=== PATIENT | male | born 1945 | race Caucasian/White ===

== ENCOUNTER 2016-12-04 22:04 | Observation (INO) | payer MEDICARE, OTHER ==
[2016-12-04] MEDS ORDERED: NITROGLYCERIN 2% OINTMENT 1 GM PACKET TP ONE (22:25)
--- NOTE | 2016-12-04 22:28 | ER Document Report ---
ED General - General Chief Complaint: Chest Pain Stated Complaint: CHEST PAIN Time Seen by Provider: 12/04/16 22:16 Notes: Patient is a 71-year-old male who presents with complaint of chest pain and some nausea. Says over the last 24 hours initially started having some pain more with exertion. Pain is progressed to become more frequent and now occurs little bit with rest. Pain is substernal radiates down the left arm. He says it feels when he had an KY in the past. His KY was 4 years ago. At that time he had stents placed. He had 1 or 2 stents. He says that he was placed" the main artery". He no longer on Plavix. He did have aspirin just prior to arrival. He has been taken nitro. So the nitro typically chest pain. He is followed by a physician executive in [place], Dr. Noah Liang. He did have a stress test in August which was normal. No heart cath since replaced 4 years ago. He does not smoke Past Medical History - Social History Smoking Status: Never Smoker Frequency of alcohol use: None Drug Abuse: None Family History: Reviewed & Not Pertinent - Past Medical History Cardiac Medical History: Denies: Hx Coronary Artery Disease, Hx Heart Attack, Hx Hypertension Pulmonary Medical History: Denies: Hx Asthma, Hx Bronchitis, Hx COPD, Hx Pneumonia Neurological Medical History: Denies: Hx Cerebrovascular Accident, Hx Seizures Musculoskeltal Medical History: Reports Hx Arthritis - back Past Surgical History: Denies: Hx Pacemaker Review of Systems - Review of Systems Notes: My Normal Review Basic REVIEW OF SYSTEMS: CONSTITUTIONAL : Denies fever, chills, or sweats. Denies recent illness. EENT: Denies eye, ear, throat, or mouth pain or symptoms. Denies nasal or sinus congestion. CARDIOVASCULAR: Had Chest pain RESPIRATORY: Denies cough, cold, or chest congestion. Denies shortness of breath, difficulty breathing, or wheezing. MUSCULOSKELETAL: Denies neck or back pain or joint pain or swelling. SKIN: Denies rash or skin lesions. NEUROLOGICAL: Denies altered mental status or loss of consciousness. Denies headache. Denies weakness or paralysis or loss of use of either side. Denies problems with gait or speech. Denies sensory or motor loss. ALL OTHER SYSTEMS REVIEWED AND NEGATIVE. Physical Exam - Notes Notes: General Appearance: Well nourished, alert, cooperative, no acute distress, no obvious discomfort. Wella ppearing Vitals: reviewed, See vital signs table. Eyes: PERRL, EOMI, Conjuctiva clear Mouth: No decreasd moisture Lungs: No wheezing, No rales, No rhonci, No accessory muscle use, good air exchange bilaterally. Heart: Normal rate, Regular rythm, No murmur, no rub Abdomen: Normal BS, soft, No rigidity, No abdominal tenderness, No guarding, no rebound, no abdominal masses, no organomegaly Extremities: strength 5/5 in all extremities, good pulses in all extremities, no swelling or tenderness in the extremities, no edema. Skin: warm, dry, appropriate color, no rash Neuro: speech clear, oriented x 3, normal affect, responds appropriately to questions. Course - Laboratory Result Diagrams: 12/04/16 22:40 12/04/16 22:40 Laboratory results interpreted by me: 12/04/16 22:40 BUN 25 H Glucose 168 H AST 15 L Creatine Kinase 38 L Total Protein 5.7 L - EKG Interpretation by Me Additional EKG results interpreted by me: 12/04/16 22:34 EKG is reviewed and interpreted by me. EKG shows normal sinus rhythm with a rate of [address] segment elevation or depression. Patient does have a right bundle branch block. NM interval, QTc intervals are within normal range. QRS duration is prolonged. No old EKG available for comparison. 12/05/16 00:14 EKG #2 is reviewed and interpreted by me. EKG shows normal sinus rhythm with rate of [address] segment elevation or depression. He does have the same right bundle branch block without any new changes. NM interval, QTc intervals are within normal range. QRS duration is prolonged. - Transfer of Care Notes: 12/05/16 03:22 Spoke with Kaila Ojeda, physician executive covering for Dr. Liang. I did explain to her his symptoms my concern that this is similar to his previous KY. His troponin and repeat troponin are in the indeterminate range. At this time she requests that we keep the patient here for further workup and rule out. She requests that when his relatives complete that the admitting physicians call there and speak with cardiology group to talk about whether or not she needs to be transferred that time or can have an outpatient cath performed. She says that if he develops recurrent chest pain or if he has any elevation of his heart enzymes then she requests that we call them back immediately for transfer. Discharge - Discharge Clinical Impression: Chest pain Qualifiers: Chest pain type: unspecified Qualified Code(s): R07.9 - Chest pain, unspecified Condition: Good Disposition: HOME, SELF-CARE Admitting Provider: Hospitalist Unit Admitted: Telemetry
[2016-12-04 22:52] LABS: ABSOLUTE EOSINOPHILS # (AUTO) 0.1 10^3/uL (0.0-0.6); ABSOLUTE LYMPHOCYTES (AUTO) 1.2 10^3/uL (0.5-4.7); ABSOLUTE MONOCYTES (AUTO) 0.4 10^3/uL (0.1-1.4); ABSOLUTE NEUT (AUTO) 4.7 10^3/uL (1.7-8.2); BASOPHILS % (AUTO) 0.4 % (0-2); EOSINOPHILS % (AUTO) 1.8 % (0-6); HEMATOCRIT 42.3 % (37.9-51.0); HEMOGLOBIN 13.9 g/dL (13.5-17.0); HGB HCT DIFFERENCE -0.6; LYMPHOCYTES % (AUTO) 18.6 % (13-45); MEAN CORPUSCULAR HGB CONC 32.9 g/dL (32.0-36.0); MEAN CORPUSCULAR VOLUME 85 fl (80-97); RED BLOOD COUNT 4.99 10^6/uL (4.35-5.55); RED CELL DISTRIBUTION WIDTH 13.5 % (11.5-14.0); SEGMENTED NEUTROPHILS % (AUTO) 73.2 % (42-78); WHITE BLOOD COUNT 6.4 10^3/uL (4.0-10.5)
[2016-12-04 23:03] LABS: ALANINE AMINOTRANSFERASE 28 U/L (21-72); ALBUMIN 3.6 g/dL (3.5-5.0); ALKALINE PHOSPHATASE 83 U/L (38-126); ANION GAP 9 (5-19); ASPARTATE AMINO TRANSFERASE 15 U/L (17-59); BILIRUBIN,DIRECT 0.2 mg/dL (0.0-0.4); BILIRUBIN,TOTAL 0.5 mg/dL (0.2-1.3); BLOOD UREA NITROGEN 25 mg/dL (7-20); CALCIUM 9.1 mg/dL (8.4-10.2); CARBON DIOXIDE 24 mmol/L (22-30); CHLORIDE 107 mmol/L (98-107); CREATINE KINASE 38 U/L (55-170); CREATININE RESULT 1.18 mg/dL (0.52-1.25); GLUCOSE 168 mg/dL (75-110); POTASSIUM 4.2 mmol/L (3.6-5.0); SODIUM 139.9 mmol/L (137-145); TOTAL PROTEIN 5.7 g/dL (6.3-8.2)
--- NOTE | 2016-12-04 23:05 | RADIOLOGY REPORT (SQ) ---
EXAM DESCRIPTION: CHEST SINGLE VIEW COMPLETED DATE/TIME: 12/04/2016 10:54 pm REASON FOR STUDY: chest pain COMPARISON: None. EXAM PARAMETERS: NUMBER OF VIEWS: One view. TECHNIQUE: Single frontal radiographic view of the chest acquired. RADIATION DOSE: NA LIMITATIONS: None. FINDINGS: LUNGS AND PLEURA: No opacities, masses or pneumothorax. No pleural effusion. MEDIASTINUM AND HILAR STRUCTURES: Moderate size retrocardiac hiatal hernia containing air-fluid level . HEART AND VASCULAR STRUCTURES: Heart normal in size. Normal vasculature. BONES: No acute findings. HARDWARE: None in the chest. OTHER: No other significant finding. IMPRESSION: Moderate size retrocardiac hiatal hernia containing air-fluid level. No acute infiltrat es. TECHNICAL DOCUMENTATION: JOB ID: [id number]
[2016-12-04 23:15] LABS: CREATINE KINASE MB 0.69 ng/mL (<4.55); TROPONIN I 0.03 ng/mL
[2016-12-05] MEDS ORDERED: NITROGLYCERIN 2% OINTMENT 1 GM PACKET TP SCH (04:15)
[2016-12-05 06:44] LABS: CHOLESTEROL 132.58 mg/dL (0-200); Direct HDL 51 mg/dL (>40); TRIGLYCERIDES 77 mg/dL (<150)
[2016-12-05 06:55] LABS: DIRECT LDL 60 mg/dL (<100)
[2016-12-05] MEDS ORDERED: ACETAMINOPHEN 325 MG TABLET PO PRN ×2 (07:38→10:07)
[2016-12-05] MEDS ORDERED: MAG HYDROX/AL HYDROX/SIMETH SUSP 30 ML UDCUP PO PRN ×2 (07:40→10:10)
[2016-12-05] MEDS ORDERED: PROMETHAZINE HCL 25 MG TABLET PO PRN ×2 (07:43→10:08)
--- NOTE | 2016-12-05 08:52 | PDOC H&P ---
History of Present Illness Admission Date/PCP: 12/05/16 05:[address] Noah Liang [facility] Patient complains of: Chest pain History of Present Illness: ESDRAS CORRAL is a 71 year old male with known coronary artery disease, having suffered an CT 4 years ago, with implantation of 1 or 2 stents at that time in his "main artery." Off Plavix for approximately 18 months. Negative stress test in August of this year. No heart cath since stent implantation. Patient has been discussed with emergency room physician who evaluated the patient. He describes a 3 or 4 day history of intermittent episodes of pressure-like substernal chest pain that radiates down his left arm. Has become particularly noticeable over the last 24 hours. Pain sometimes at rest, and sometimes with exertion. Pain quite similar to what he experienced with his previous CT. Associated nausea, but no vomiting. States it feels as though is hard to catch his breath when he has the pain. No associated sweating. Has basically been pain-free since coming to the hospital and having nitro paste applied, other than very brief episodes of much milder pain, typically lasting 5 minutes or so. Currently resting quietly, chest pain-free.. Laboratory results are listed in [facility] and are reviewed. X-ray summary results are listed below, with full report(s) reviewed. . EKGs reviewed. No prior EKG available for comparison. Social history/personal habits: . Has children. 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 No use of tobacco alcohol or illicit drugs. Allergies/adverse reactions are listed in [facility] and are reviewed. Home medications initially autopopulated into [facility] may not accurately reflect patient's true medications, dosages, and/or frequencies. 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 Unfortunately, patient not certain of all medications/dosages/frequencies. REVIEW OF SYSTEMS: Constitutional: No fever or chills. Eyes: Wears glasses. ENT: No swallowing problems or complaints. Denies hearing loss. Pulmonary: See history and present illness. Cardiovascular: See history and present illness. Gastrointestinal: See history and present illness. Skin: No current complaints, including rashes. Hematologic: Easy bruising. Neurologic: No current complaints, including numbness or tingling. Musculoskeletal: Mild arthritis pain involving his hands. Psychiatric: Denies anxiety or depression. Endocrine: No current complaints, including polyuria. Genitourinary: No current complaints, including dysuria. PHYSICAL EXAMINATION: Neither height nor weight are recorded on the chart. Blood pressure 131/78. Pulse 62 and regular. Respirations are 16 and unlabored. 95% saturation on room air. Temperature not recorded on chart; skin feels normothermic. Slightly overweight otherwise well-nourished well-developed male appearing a bit younger than his stated age. Pleasant awake alert and cooperative. Somewhat anxious, although no inga agitation. Skin is warm and dry. No grossly obvious evidence of rash in areas of skin examined. No subcutaneous nodules palpated. ENT: Hearing grossly normal to normal conversation. Tongue midline on protrusion pink and slightly tacky. Eyes: No scleral icterus. Pupils equal and reactive to light at 4 mm. [place] conjunctivae. Neck is supple and nontender to gentle active range of motion and palpation. Midline trachea. No palpable thyroid nodule mass enlargement or tenderness. Lymphatic: No palpable cervical or clavicular nodes. Neck and lymphatic exams limited by patient body habitus. Psychiatric: Reasonable insight into acute and chronic medical issues. Oriented to time location and why here. Lungs: Auscultation reveals clear and equal breath sounds bilaterally. No use of accessory respiratory muscles. Cardiovascular: Heart regular rate and rhythm, without gallop murmur or rub. No carotid or abdominal aortic bruits. No ankle or pedal edema. Faintly palpable dorsalis pedis pulses. Abdomen:soft slightly distended nontender with positive bowel sounds. Unable to adequately evaluate abdomen for masses or organomegaly due to distention. Compression of neither the upper abdomen nor sternum reproduces his previously noted chest discomfort. Extremities: Feet are cool and dry with quite acceptable capillary refill at toes. No calf tenderness to compression. No grossly obvious visual evidence of calf swelling. Gentle manipulation of lower extremities fails to reveal any obvious evidence of injury or instability to knees hips or ankles. Neurologic: Moves upper extremities grossly normally. Patellar reflexes absent. Absent Babinski. Light touch is intact at feet. Dorsiflexion and plantarflexion of feet 5 / 5 and symmetric. Past Medical History Cardiac Medical History: Reports: Coronary Artery Disease - Stented, Myocardial Infarction, Hyperlipidema, Hypertension Denies: Congestive Heart Failure, DVT, Pulmonary Embolism Pulmonary Medical History: Reports: Sleep Apnea Denies: Asthma, Bronchitis, Chronic Obstructive Pulmonary Disease (COPD), Pneumonia EENT Medical History: Reports: Eyes - Glasses Denies: Ears, Throat Neurological Medical History: Denies: Hemorrhagic CVA, Ischemic CVA, Seizures Endocrine Medical History: Reports: Hypothyroidism - Post surgical Denies: Diabetes Mellitus Type 1, Diabetes Mellitus Type 2, Hyperthyroidism Renal/ Medical History: Reports: None GI Medical History: Denies: Cirrhosis, Gastroesophageal Reflux Disease, Hepatitis, Peptic Ulcer Disease Musculoskeltal Medical History: Reports: Arthritis - back Skin Medical History: Denies: None Psychiatric Medical History: Denies: Alcohol Dependency, Depression, General Anxiety Disorder, Substance Abuse, Tobacco Dependency Hematology: Reports: Other - Easy bruising Denies: Anemia Infectious Medical History: Denies: Clostridium Difficile, Hepatitis B, Hepatitis C, Methicillin- Resistant Staph Aureus Past Surgical History Past Surgical History: Reports: Coronary Stent - 1 or 2, 2013 following myocardial infarction., Herniorrhaphy, Other - Total thyroidectomy for benign disease Denies: Pacemaker Social History Information Source: Patient, Emergency Med Personnel, [facility] Records Lives with: Spouse/Significant other Smoking Status: Never Smoker Frequency of Alcohol Use: None Drugs: None - Advance Directive Resuscitation Status: Full Code Surrogate healthcare decision maker:: Family History Family History: Reviewed & Not Pertinent Parental Family History Reviewed: Yes - Mother of cirrhosis, father of ruptured abdominal aortic aneurysm Children Family History Reviewed: Yes - Healthy Sibling(s) Family History Reviewed.: Yes - Brother as an infant at 3 months old. Medication/Allergy Home Medications: Aspirin [Aspirin 81 mg Chewable Tablet] 81 mg PO DAILY 12/05/16 Levothyroxine Sodium [Synthroid] 137 mcg PO QAM 12/05/16 Metoprolol Succinate [Toprol Xl 25 mg Tab.sr] 25 mg PO DAILY 12/05/16 Pravastatin Sodium [Pravachol] 40 mg PO QHS 12/05/16 Allergies/Adverse Reactions: prednisone Allergy (Verified 12/05/16 07:28) Physical Exam Vital Signs: Temp Pulse Resp BP Pulse Ox 16 129/83 H 99 12/05/16 07:01 12/05/16 07:01 12/05/16 07:01 Results Laboratory Results: 12/05/16 06:13 Triglycerides 77 Cholesterol 132.58 LDL Cholesterol Direct 60 VLDL Cholesterol 15.0 HDL Cholesterol 51 12/05/16 06:13 Troponin I 0.032 Impressions: Chest X-Ray 12/04/16 22:17 IMPRESSION: Moderate size retrocardiac hiatal hernia containing air-fluid level. No acute infiltrates. Assessment & Plan - Diagnosis (1) Chest pain Qualifiers: Chest pain type: unspecified Qualified Code(s): R07.9 - Chest pain, unspecified Is this a current diagnosis for this admission?: YesPlan: Patient will be placed in observation bed under chest pain protocol. Patient understands to notify staff should chest pain recur. Serial troponin . Repeat EKG. lipid panel. Emergency room physician discussed patient with Dr. Kristi Watson, on-call peoplesoft hrms developer covering for Dr. Liang. Please refer to his notes concerning same. Recommended patient be placed in observation bed in our facility with trending of enzymes. If patient remains chest pain-free and enzymes do not elevate, call the cardiology group to assist in arranging outpatient heart cath. Obviously if pain recurs and/or enzymes elevate, to call earlier for transfer to their facility. I have strongly encouraged patient to be careful getting out of bed without notifying staff, to avoid a fall with injury. Knee high SCDs for DVT prophylaxis, along with subcu Lovenox. Impression and plans were discussed with patient who concurs. Time spent in evaluation and management of patient: 72 minutes. (3) HLD (hyperlipidemia) Qualifiers: Hyperlipidemia type: unspecified Qualified Code(s): E78.5 - Hyperlipidemia, unspecified Is this a current diagnosis for this admission?: YesPlan: Lipid panel. Resume home medications as appropriate once these have been determined and reviewed. (4) Post-surgical hypothyroidism Is this a current diagnosis for this admission?: YesPlan: TSH pending. Resume home medications as appropriate once these have been determined and reviewed.
[2016-12-05] MEDS: DOCUSATE SODIUM 100 MG CAPSULE PO SCH ×2 (09:21→19:11)
[2016-12-05] MEDS: NITROGLYCERIN 2% OINTMENT 1 GM PACKET TP SCH ×2 (09:21→16:10)
[2016-12-05] MEDS: ASPIRIN 81 MG TABLET, ENT COATED PO SCH (09:23)
[2016-12-05] MEDS ORDERED: ENOXAPARIN SODIUM INJ 40 MG/0.4 ML DISP.SYRIN SUBCUT SCH (10:00)
--- NOTE | 2016-12-05 10:23 | EKG REPORT ---
SEVERITY:- ABNORMAL ECG - SINUS RHYTHM RIGHT BUNDLE BRANCH BLOCK : Confirmed by: Mackenzie Mcfarlane MD 05-Dec-2016 10:22:11
--- NOTE | 2016-12-05 10:23 | EKG REPORT ---
SEVERITY:- ABNORMAL ECG - SINUS RHYTHM RIGHT BUNDLE BRANCH BLOCK BORDERLINE INFERIOR Q WAVES : Confirmed by: Mackenzie Mcfarlane MD 05-Dec-2016 10:22:14
[2016-12-05] MEDS ORDERED: MORPHINE SULFATE 10 MG/ML INJ ONE ×2 (11:23→11:41)
[2016-12-05] MEDS ORDERED: MORPHINE SULFATE 10 MG/ML INJ IV PRN (12:07)
[2016-12-05] MEDS ORDERED: ENOXAPARIN SODIUM INJ 120 MG/0.8 ML DISP.SYRIN SUBCUT ONE (12:45)
[2016-12-05] MEDS ORDERED: CLOPIDOGREL BISULFATE 75 MG TABLET ONE (12:45)
[2016-12-05] MEDS ORDERED: CLOPIDOGREL BISULFATE 75 MG TABLET PO ONE (12:45)
[2016-12-05] MEDS ORDERED: METOPROLOL TARTRATE PF/INJ 5 MG/5 ML SDV IV ONE (12:45)
--- NOTE | 2016-12-05 12:45 | PDOC TRANSFER SUMMARY ---
General Admission Date/PCP: 12/05/16 05:50 ARACELIS KAUR Admission Date: 12/05/16 Transfer Date: 12/05/16 Accepting Facility: [facility] Accepting Physician: Dr. Sky/Cardiology Resuscitation Status: Full Code - Transfer Diagnosis (1) Chest pain Is this a current diagnosis for this admission?: Yes (3) HLD (hyperlipidemia) Is this a current diagnosis for this admission?: Yes (4) Post-surgical hypothyroidism Is this a current diagnosis for this admission?: Yes - Transfer Medications Home Medications: Aspirin [Aspirin 81 mg Chewable Tablet] 81 mg PO DAILY 12/05/16 Levothyroxine Sodium [Synthroid] 137 mcg PO QAM 12/05/16 Metoprolol Succinate [Toprol Xl 25 mg Tab.sr] 25 mg PO DAILY 12/05/16 Pravastatin Sodium [Pravachol] 40 mg PO QHS 12/05/16 Transfer Medications: Current Medications Acetaminophen (Tylenol 325 Mg Tablet) 650 mg PO Q4HP PRN PRN Reason: MILD PAIN OR TEMP > 101 Stop: 01/04/17 07:37 Al Hydrox/Mg Hydrox/Simethicone (Maalox Plus Susp 30 Udcup) 30 ml PO Q4HP PRN PRN Reason: indigestion Stop: 01/04/17 07:39 Aspirin (Ecotrin 81 Mg Ec Tablet) 81 mg PO DAILY [facility] Stop: 01/04/17 09:59 Last Admin: 12/05/16 09:23 Dose: 81 mg Clopidogrel Bisulfate (Plavix 75 Mg Tablet) 75 mg PO DAILY [facility] Stop: 01/05/17 09:59 Docusate Sodium (Colace 100 Mg Capsule) 100 mg PO BID [facility] Stop: 01/04/17 09:59 Last Admin: 12/05/16 09:21 Dose: 100 mg Enoxaparin Sodium (Lovenox Inj 150 Mg/1 Ml Disp.Syrin) 160 mg SUBCUT Q12 [facility] Stop: 01/04/17 12:14 Lansoprazole (Prevacid 30 Mg Odt Tablet) 30 mg PO BID@0600,1700 [facility] Stop: 01/04/17 16:59 Metoprolol Tartrate (Lopressor Inj/Pf 5 Mg/5 Ml Sdv) 2.5 mg IV Q6 [facility] Stop: 01/04/17 12:14 Morphine Sulfate (Morphine 10 Mg/Ml Inj) 4 mg IV Q4HP PRN PRN Reason: pain Stop: 12/12/16 12:06 Nitroglycerin (Nitrol 2% Ointment 1gm Packet) 1 gm TP Q6A [facility] Stop: 01/04/17 08:59 Last Admin: 12/05/16 09:21 Dose: 1 gm Promethazine HCl (Phenergan 25 Mg Tablet) 12.5 mg PO Q6HP PRN PRN Reason: FOR NAUSEA/VOMITING Stop: 01/04/17 07:42 Sodium Chloride (Saline Flush 2.5 Ml Monoject Prefil Syrin) 2.5 ml IV Q8 [facility] Stop: 01/04/17 13:59 - Allergies Allergies/Adverse Reactions: prednisone Allergy (Verified 12/05/16 07:28) - Diet/Activity Discharge Diet: Cardiac Discharge Activity: Bedrest Hospital Course Hospital Course: The patient was admitted to observation. Serial cardiac enzymes were obtained and was negative but on the indeterminate range. EKG shows right bundle branch block pattern. Patient was started on aspirin and nitroglycerin. Oxygen was likewise given. DVT prophylaxis with Lovenox was placed. Patient however developed another episode of chest pain. Patient was given intravenous morphine. His EKG was done and showed ST depressions on the anterior lateral leads compared to the EKG earlier. Serial enzymes were again obtained but results are pending. Patient was placed on intravenous beta-mac with Lopressor as well as Plavix and full dose anticoagulation with Lovenox. At this point [facility] was contacted again. Dr. Sky covering for Dr. Liang who is the patient's equipment installer accepted the transfer. The rest of the hospital stays unremarkable. Physical Exam Vital Signs: Temp Pulse Resp BP Pulse Ox 14 125/72 98 12/05/16 11:01 12/05/16 11:01 12/05/16 11:01 Intake & Output 12/04/16 12/05/16 12/06/16 06:59 06:59 06:59 Weight 163 kg General appearance: PRESENT: no acute distress, cooperative Head exam: PRESENT: normocephalic Eye exam: PRESENT: EOMI Mouth exam: PRESENT: moist, neck supple Neck exam: ABSENT: JVD Respiratory exam: PRESENT: clear to auscultation crow. ABSENT: rhonchi, wheezes Cardiovascular exam: PRESENT: RRR. ABSENT: gallop GI/Abdominal exam: PRESENT: normal bowel sounds, soft. ABSENT: distended, tenderness Extremities exam: ABSENT: pedal edema Neurological exam: PRESENT: alert, awake, oriented to situation Skin exam: PRESENT: dry, warm. ABSENT: cyanosis Results Laboratory Results: 12/05/16 12/05/16 06:13 06:13 Triglycerides 77 Cholesterol 132.58 LDL Cholesterol Direct 60 VLDL Cholesterol 15.0 HDL Cholesterol 51 TSH 0.13 L 12/05/16 12/05/16 06:13 09:35 Troponin I 0.032 0.023 Impressions: Chest X-Ray 12/04/16 22:17 IMPRESSION: Moderate size retrocardiac hiatal hernia containing air-fluid level. No acute infiltrates. Plan Discharge Plan: Transferred to [facility] for further evaluation and management. Time Spent: Less than 30 Minutes
[2016-12-05] MEDS: ENOXAPARIN SODIUM INJ 80 MG/0.8 ML DISP.SYRIN SUBCUT SCH (13:55)
[2016-12-05 14:13] LABS: APPEARANCE,URINE CLEAR; BILIRUBIN,URINE NEGATIVE (NEGATIVE); GLUCOSE, URINE NEGATIVE (NEGATIVE); KETONES,URINE NEGATIVE (NEGATIVE); LEUKOCYTE ESTERASE,URINE NEGATIVE (NEGATIVE); NITRITE,URINE NEGATIVE (NEGATIVE); PROTEIN,URINE 30 mg/dL (NEGATIVE); URINE SPECIFIC GRAVITY 1.017; UROBILINOGEN,URINE NEGATIVE mg/dL (<2.0)
[2016-12-05 14:27] LABS: CREATINE KINASE MB 0.81 ng/mL (<4.55)
[2016-12-05 14:37] LABS: TROPONIN I 0.056 ng/mL
--- NOTE | 2016-12-05 17:57 | EKG REPORT ---
SEVERITY:- ABNORMAL ECG - SINUS RHYTHM RIGHT BUNDLE BRANCH BLOCK ST DEPRESSION, CONSIDER ISCHEMIA, ANT-LAT LDS : Confirmed by: Mackenzie Mcfarlane MD 05-Dec-2016 17:56:54
[2016-12-05 18:18] LABS: CREATINE KINASE MB 0.95 ng/mL (<4.55)
[2016-12-05 18:31] LABS: TROPONIN I 0.131 ng/mL
[2016-12-05] MEDS: LANSOPRAZOLE 30 MG TAB.RAP.DR PO SCH (19:10)
[2016-12-05] MEDS: METOPROLOL TARTRATE PF/INJ 5 MG/5 ML SDV IV SCH (19:11)
[2016-12-05 22:53] LABS: CREATINE KINASE MB 1.59 ng/mL (<4.55)
[2016-12-05 23:01] LABS: TROPONIN I 0.201 ng/mL
[2016-12-06] MEDS: NITROGLYCERIN 2% OINTMENT 1 GM PACKET TP SCH (02:24)
[2016-12-06] MEDS: METOPROLOL TARTRATE PF/INJ 5 MG/5 ML SDV IV SCH ×3 (02:25→12:37)
[2016-12-06] MEDS: LANSOPRAZOLE 30 MG TAB.RAP.DR PO SCH (06:35)
[2016-12-06] MEDS: ENOXAPARIN SODIUM INJ 80 MG/0.8 ML DISP.SYRIN SUBCUT SCH (09:47)
[2016-12-06] MEDS: DOCUSATE SODIUM 100 MG CAPSULE PO SCH (09:47)
[2016-12-06] MEDS: ASPIRIN 81 MG TABLET, ENT COATED PO SCH (09:47)
[2016-12-06] MEDS ORDERED: CLOPIDOGREL BISULFATE 75 MG TABLET PO SCH (10:00)
--- NOTE | 2016-12-06 12:44 | EKG REPORT ---
SEVERITY:- ABNORMAL ECG - SINUS RHYTHM RIGHT BUNDLE BRANCH BLOCK : Confirmed by: Mackenzie Mcfarlane MD 06-Dec-2016 12:43:21
[2016-12-06] MEDS ORDERED: LISINOPRIL 5 MG TABLET PO SCH (14:45)
[2016-12-06] MEDS ORDERED: LISINOPRIL 10 MG TABLET ONE (15:28)
[2016-12-06 17:12] VITALS: BP 145/76
== END 2016-12-06 16:55 | disposition short-term general hospital (02) ==
LOC: ER 22:04 → EH 12-05 05:50 → INTOOBSV 12-05 05:50
PROVIDERS: ADMIT Family Medicine; ATTEND Family Medicine
DX: I25.110 Atherosclerotic heart disease of native coronary artery with unstable angina pectoris (principal); R07.89 Other chest pain; E78.5 Hyperlipidemia, unspecified; E89.0 Postprocedural hypothyroidism; I45.10 Unspecified right bundle-branch block; K44.9 Diaphragmatic hernia without obstruction or gangrene; I25.2 Old myocardial infarction; Z79.899 Other long term (current) drug therapy; Z79.82 Long term (current) use of aspirin; Z95.5 Presence of coronary angioplasty implant and graft; Z98.890 Other specified postprocedural states; Z82.49 Family history of ischemic heart disease and other diseases of the circulatory system
CPT/HCPCS: 93005 ×3; 99285; 36415 ×3; 82553 ×2; 82550 ×2; 84443; 85025; 80053; 81001; 84484 ×3; 80061; 71010; 93010 ×3; A9270 ×12; J1650 ×3; J3490 ×2; J2270

== ENCOUNTER 2017-07-19 06:57 | Day surgery (SDC) | payer MEDICARE ==
[~2017-07-19 06:57] MED LIST: KETOROLAC TROMETHAMINE 0.45% 4 DROP/0.4 ML DROPERETTE OD PRN
[2017-07-19] MEDS: TETRACAINE HCL 0.5% OPH SOLN 0.6 ML DROPERETTE OD PRN ×4 (07:21→07:54)
[2017-07-19] MEDS: CYCLOPENTOLATE 0.2%/PHENYLEPHRINE 1% OPH SOLN 2 ML OD PRN ×3 (07:21→07:34)
[2017-07-19] MEDS: BESIFLOXACIN HCL 0.6% OPH SUSP 5 ML BOTTLE OD PRN ×4 (07:21→08:14)
[2017-07-19] MEDS: TROPICAMIDE 1% OPH SOLN 3 ML OD PRN ×3 (07:21→07:34)
[2017-07-19] MEDS ORDERED: MIDAZOLAM 2 MG/2 ML INJ ONE ×2 (07:48)
[2017-07-19] MEDS: CHONDR SU A NA/HYALUR INTRAOC KIT (SURGICARE) ONE ×2 (08:03)
[2017-07-19] MEDS: LIDOCAINE 1% INJ-PF (10 MG/ML) 30 ML SDV ONE ×2 (08:03)
[2017-07-19] MEDS: EPINEPHRINE INJ/PF 1 MG/1 ML AMPULE ONE ×2 (08:03)
[2017-07-19] MEDS: TOBRAMYCIN SULFATE/DEXAMETH OPH OINTMENT 3.5 GM ONE ×2 (08:14)
== END 2017-07-19 08:56 | disposition home or self-care (01) ==
LOC: SC 06:57
PROVIDERS: ATTEND Ophthalmology
PROC: 08RJ3JZ Replacement of Right Lens with Synthetic Substitute, Percutaneous Approach (ICD-10-PCS; principal; 2017-07-19 07:45)
DX: H25.11 Age-related nuclear cataract, right eye (principal); M19.90 Unspecified osteoarthritis, unspecified site; I25.10 Atherosclerotic heart disease of native coronary artery without angina pectoris; E11.9 Type 2 diabetes mellitus without complications; I10 Essential (primary) hypertension; E78.00 Pure hypercholesterolemia, unspecified; E03.9 Hypothyroidism, unspecified; I25.2 Old myocardial infarction; Z79.82 Long term (current) use of aspirin; Z79.899 Other long term (current) drug therapy; Z88.8 Allergy status to other drugs, medicaments and biological substances
CPT/HCPCS: 66984; V2630; J2250; J3490 ×3; A9270; J0171; 142

== ENCOUNTER 2017-08-02 08:11 | Day surgery (SDC) | payer MEDICARE ==
[~2017-08-02 08:11] MED LIST changes: +CHONDR SU A NA/HYALUR INTRAOC KIT (SURGICARE) ONE; +EPINEPHRINE INJ/PF 1 MG/1 ML AMPULE ONE; -KETOROLAC TROMETHAMINE 0.45% 4 DROP/0.4 ML DROPERETTE OD PRN; +KETOROLAC TROMETHAMINE 0.45% 4 DROP/0.4 ML DROPERETTE OS PRN; +LIDOCAINE 1% INJ-PF (10 MG/ML) 30 ML SDV ONE; +TOBRAMYCIN SULFATE/DEXAMETH OPH OINTMENT 3.5 GM ONE
[2017-08-02] MEDS: TETRACAINE HCL 0.5% OPH SOLN 0.6 ML DROPERETTE OS PRN ×3 (08:48→09:12)
[2017-08-02] MEDS: TROPICAMIDE 1% OPH SOLN 3 ML OS PRN ×3 (08:50→09:04)
[2017-08-02] MEDS: CYCLOPENTOLATE 0.2%/PHENYLEPHRINE 1% OPH SOLN 2 ML OS PRN ×3 (08:50→09:04)
[2017-08-02] MEDS: BESIFLOXACIN HCL 0.6% OPH SUSP 5 ML BOTTLE OS PRN ×3 (08:50→09:31)
[2017-08-02] MEDS ORDERED: MIDAZOLAM 2 MG/2 ML INJ ONE (08:59)
== END 2017-08-02 10:03 | disposition home or self-care (01) ==
LOC: SC 08:11
PROVIDERS: ATTEND Ophthalmology
PROC: 08RK3JZ Replacement of Left Lens with Synthetic Substitute, Percutaneous Approach (ICD-10-PCS; principal; 2017-08-02 09:15)
DX: H25.12 Age-related nuclear cataract, left eye (principal); Z98.41 Cataract extraction status, right eye; M19.90 Unspecified osteoarthritis, unspecified site; E11.9 Type 2 diabetes mellitus without complications; I10 Essential (primary) hypertension; E78.00 Pure hypercholesterolemia, unspecified; E03.9 Hypothyroidism, unspecified; I25.2 Old myocardial infarction; Z79.899 Other long term (current) drug therapy; Z79.82 Long term (current) use of aspirin
CPT/HCPCS: 66984; V2630; J2250; J3490 ×3; A9270; J0171; 142